=== PATIENT | male | born 1980 | race Caucasian/White ===

== ENCOUNTER 2016-07-08 07:53 | Emergency (ER) | payer BC ==
--- NOTE | 2016-07-09 08:23 | ER ---
ADMIT: 07/08/2016 RM/LOC: ER [facility] MR#: [id number] [address] [place], [place] [address] LARRY MAYEN [address] [place] [address] Emergency Room Report SEX: M AGE: 36 : 1980 DATE: 07/08/2016 TIME: 0753. PRIMARY CARE: Family Practice. Please refer to my T-sheet for complete H and P. HISTORY OF PRESENT ILLNESS: Briefly, the patient is a 36-year-old who comes in with headache, kind of diffusely all over. It started Saturday. He had been out drinking pretty heavily. , he thought he was hung over. He was nauseous although persisted Saturday, it has not gone away. He has had an episode like this years ago with a headache that did not go away. But this seems to be persistent. No fevers, no chills. He rates it 8/10. Comes in for evaluation. PHYSICAL EXAMINATION: VITAL SIGNS: Blood pressure 134/97, pulse 65, respirations 18, temp 98, saturating 100%. GENERAL: No acute distress. HEENT: No meningismus, no nuchal rigidity. LUNGS: Clear. HEART: Regular. ABDOMEN: Soft. SKIN: No rash. NEURO: He is alert, oriented, and nonfocal. EMERGENCY DEPARTMENT COURSE: I gave him a liter normal saline bolus, Reglan 10 IV, Decadron 10 IV, 2 mg of morphine. We will titrate morphine. Need to write for release. CAT scan of his brain was normal. His pain was vastly improved. I had a long discussion with him. They are ready for discharge. ASSESSMENT: Acute headache treated in the emergency department as above. PLAN: Reglan 10 mg t.i.d. p.r.n., fluids return if worse. Use Tylenol. Follow up with Family Practice if not better this week. Beto He MD/ jessika JOB #: [id number] CC: Beto He MD, Attending Physician Rolly Pozo MD, Family Physician
[2016-07-14] MEDS ORDERED: FLEXERIL DPS5 MG PO (19:49)
== END 2016-07-08 10:35 | disposition home or self-care (01) ==
LOC: ER 07:53
DX: R51 Headache (principal); Z79.899 Other long term (current) drug therapy

== ENCOUNTER → 2016-07-10 | Outpatient (CLI) | payer BC ==
[~2016-07-10] MED LIST: FLEXERIL DPS5 MG PO
== END | disposition home or self-care (01) ==
LOC: RAD.S 12:27
DX: G43.009 Migraine without aura, not intractable, without status migrainosus (principal)

== ENCOUNTER 2016-07-11 14:35 | Observation (INO) | payer BC ==
[~2016-07-11] VITALS: Ht 180.3 cm; Wt 86.0 kg
[2016-07-14] MEDS ORDERED: FLEXERIL DPS5 MG PO (19:49)
--- NOTE | 2016-07-20 07:33 | CO ---
ADMIT: 07/11/2016 RM/LOC: 507 [facility] MR#: [id number] [address] [address] LARRY MAYEN [address] [place] [address] Consultation SEX: M AGE: 36 : 1980 DATE OF CONSULTATION: 07/11/2016 ATTENDING PHYSICIAN: Cassius Coulter CONSULTING PHYSICIAN: Dante Billings MD REASON FOR CONSULT: Spontaneous CSF leak with headache. HISTORY OF PRESENT ILLNESS: Mr. Mayen was golfing last Saturday. He was not wearing his cleats for the first dayron-off. He kind of slipped and twisted and felt some pain in his back. Now, he has pain in his back. He has pain right between his shoulder blades and into his right buttock. He has had horrible headaches when he has gotten up. When he lays flat, his head feels just fine. This has been going on and non-remitting since last Saturday, so about 5 days or so. He came in today after having a CT myelogram for evaluation. He had had an MRI and MRA of his brain yesterday. PAST MEDICAL HISTORY: None otherwise. SOCIAL HISTORY: He is a nonsmoker and nondrinker. He is a counselor at [employer]. FAMILY HISTORY: No history of neurosurgical disease. REVIEW OF SYSTEMS: Complete review of systems was obtained and pertinent positives dictated in the aforementioned portion of this note. PHYSICAL EXAMINATION: VITAL SIGNS: 134/97, 65 beats, 18 respirations, 98 degrees, 100% on room air. GENERAL: He is an otherwise healthy-appearing gentleman with an atraumatic head. HEENT: No scleral icterus. Clear oropharynx. LUNGS: Normal respiratory excursion. ABDOMEN: Nontender abdomen. EXTREMITIES: 2+ radial pulses. NEUROLOGICAL EXAMINATION: MENTAL STATUS: He is awake, alert, and oriented x4. He has no dysphonia, dysarthria, or aphasia. His affect is appropriate. His thought content is normal. CRANIAL NERVES: Cranial nerves II through XII were individually tested and found to be intact without deficit. MOTOR EXAM: Motor exam reveals 5/5 strength in bilateral upper and lower extremities with normal bulk, normal tone. DEEP TENDON REFLEXES: 2/4 in the upper and lower extremities with no pathological sign or spread. CEREBELLAR: No cerebellar signs. GAIT: Not tested as he is recumbent in bed and has a severe headache whenever he is up. ADMIT: 07/11/2016 RM/LOC: [address] [facility] MR#: [id number] [address] [address] [place] [address] Consultation SEX: M AGE: 36 : 1980 ASSESSMENT AND PLAN: Mr. 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 I agree with Dr. Bekc's interpretation. I think there is a pretty clear leak on the CT myelogram from today at the T12-L1 level in the anterolateral aspect near the nerve off-take toward the right. I think it is very likely this will possibly heal on its own or with epidural blood patch. I have talked to Dr. Uriostegui with Anesthesia. They are planning on doing that tomorrow morning. I counseled the patient and his to be recumbent as much as possible and to not perform any maneuvers that would create a Valsalva that would increase cerebrospinal fluid pressure and create more of a leak. The longer he is recumbent, the better. The headache may persist for a few weeks even after this heals shut. I will see him back, after he is discharged, early next week. If he still is having pain and headache and has not had alleviation of his symptoms, we would consider a transforaminal epidural fibrin glue deposition in IR. Ultimately, if that would be unsuccessful, we would have to surgically repair this. I think it is very likely we will be able to repair it with nonsurgical means though. At this point, I think he should have as much sugared caffeinated beverages as he wants for the headaches and maintain a recumbent position with head and buttocks aligned as much as possible to try to limit any further excursion of CSF. I see no sign of spinal cord prolapse, which has been noted in the literature. I personally have seen a case of that. There is no sign of that at this point. Myelopathic signs would be a higher surgical acuity and consideration for operation at a sooner time period. We will plan to follow up with him while he is here in the hospital. I will plan to see him back next Saturday in clinic. Dante Billings MD/ jessika JOB #: [id number] CC: Cassius Coulter, Attending Physician Cassius Coulter, Family Physician
--- NOTE | 2016-07-21 18:06 | ER ---
ADMIT: 07/11/2016 RM/LOC: 507 [facility] MR#: [id number] [address] [place], [place] [address] ALRRY MAYEN [address] [place] [address] Emergency Room Report SEX: M AGE: 36 : 1980 DATE: 07/11/2016 ADDENDUM: CHIEF COMPLAINT: Headache. HISTORY OF PRESENT ILLNESS: This is a 36-year-old male, who was playing golf on this . He woke up Saturday morning with headache as soon as he sat up. It has been going on throughout the weekend. He had a CT done of his head on Saturday. He did see Dr. Cassius Coulter on Saturday. They did MRI which was negative for any acute findings, so Dr. Jairo Coulter today did an MRI of his T-spine and L-spine. He spoke with Dr. Kirby. He suggested that it could be spontaneous spinal headache, so sent him to the ER to be further evaluated. I did speak with both Dr. Jairo Coulter and Dr. Abdalla and Dr. Shi regarding this patient. We are trying to get a CT myelogram. He will be admitted for CT myelogram and pain control. CLINICAL IMPRESSION: Spontaneous spinal headache. CROW Turner / Beto He MD / modl JOB #: [id number] CC: Cassius Coulter MD, Attending Physician Cassius Coulter MD, Family Physician
--- NOTE | 2016-07-23 09:03 | OR ---
ADMIT: 07/11/2016 RM/LOC: 507 [facility] MR#: [id number] [address] [address] LARRY MAYEN [address] [place] [address] Operative/Delivery Room Report SEX: M AGE: 36 : 1980 SURGERY DATE: 07/12/2016 SURGEON: Dante Tillman MD PROCEDURE: Epidural blood patch. PREOPERATIVE DIAGNOSIS: Spinal headache secondary to spontaneous cerebrospinal fluid leak. POSTOPERATIVE DIAGNOSIS: Spinal headache secondary to spontaneous cerebrospinal fluid leak. INDICATION FOR PROCEDURE: The patient is a 36-year-old male who presented initially to his primary care provider and subsequently the emergency room complaining of a headache. This headache was positional in nature and in that it was very severe when he was sitting or standing up and was nearly completely relieved by lying flat. The patient feels like he has had these headaches for just under a week after he had injury to his back. He has had MRI of his brain as well as CT myelogram and the myelogram shows evidence of a CSF leak near the T12 nerve root. The patient denies any visual changes, fever, chills, or severe back pain at this. He denies any history of coagulopathies or being on any kind of blood thinner. DESCRIPTION OF PROCEDURE: Informed consent was obtained from the patient after explaining in detail all risks and benefits including but not limited to risk of inadvertent dural puncture, failure of the blood patch to relieve the headache, bleeding, infection, back pain, and sciatica, nerve damage. The patient agrees to proceed with the procedure. The patient was placed in the sitting position. Sterile prep and drape were applied to the low back area. Lidocaine 1% was infiltrated into the skin and subcutaneous tissues over approximately at L3-L4 interspace. This was noted to be approximately 1 interspace higher than the puncture for the myelogram. An 18-gauge Tuohy needle was used with loss of resistance technique the located the epidural space. The epidural space was encountered at approximately 6 cm. Sterilely, ADMIT: 07/11/2016 RM/LOC: 507 [facility] MR#: [id number] [address] [address] LARRY MAYEN [address] [place] [address] Operative/Delivery Room Report SEX: M AGE: 36 : 1980 clinical lab clerk lita blood from the patient's right AC area and passed the syringe to sd maintaining sterility. Slowly, 20 mL of the patient's blood was then injected to the epidural space. The needle was flushed and was withdrawn and a Band-Aid was placed over the site. The patient was returned to supine position and appeared to tolerate the procedure well. The patient will be discharged with followup as already planned with his primary care provider as well as Neurosurgery. The patient was instructed to return to the emergency room if he has any neurological deficits including any loss of bowel or bladder control, numbness or weakness of his lower extremities or severe back pain. It was also explained to the patient that 1 epidural blood patch may not be enough to relieve his headache and subsequent patch may be attempted on recommendation from his primary care provider or neurosurgeon. Dante Tillman MD/ jessika JOB #: [id number] CC: Cassius Coulter MD, Attending Physician Cassius Coulter MD, Family Physician
--- NOTE | 2016-07-26 08:09 | HP ---
ADMIT: 07/11/2016 RM/LOC: 507 [facility] MR#: [id number] [address] [address] LARRY MAYEN [address] [place] [address] History and Physical SEX: M AGE: 36 : 1980 DATE OF SERVICE: CHIEF COMPLAINT: Headache. HISTORY OF PRESENT ILLNESS: Larry is a 36-year-old, , white male, followed by Dr. Cassius Coulter in [facility]. He was seen today in the clinic for followup of a headache. He had complained of a severe headache that is progressively worse over the last couple of days and ultimately had an MRI and MRI of the brain obtained with followup today. The MRI and MRA of the brain were read as normal. He states the headache has progressively worsened. He states when he stands up, the pain is so excruciating, it feels like his head is going to blow up. He states when he lays down, it essentially goes away. He denies any fevers, chills, runny nose, cough, or other infectious symptoms. He states when he lays down, he essentially feels normal. PAST MEDICAL HISTORY: Operations none. Illnesses none. MEDICATIONS: Include recent Augmentin for sinuses. ALLERGIES: NONE KNOWN. SOCIAL HISTORY: Is that of a 36-year-old, white male. He has two children. 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 He does not smoke, and he drinks socially. FAMILY HISTORY: Noncontributory. REVIEW OF SYSTEMS: Remarkable for his headache only when he stands up. The remainder of review of systems is negative. PHYSICAL EXAMINATION: VITAL SIGNS: Stable. He is currently afebrile with temperature 99.2, blood pressure 129/77 with a pulse of 65, respiratory rate 16. GENERAL: Exam shows him to be alert. Pupils are reactive. Extraocular muscles intact. TMs normal. Throat normal. Neck normal. HEART: Regular without murmur. LUNGS: Clear. ABDOMEN: Soft, nontender, benign. GENITOURINARY: Deferred. RECTAL: Deferred. EXTREMITIES: Normal. He has no clubbing, cyanosis, or edema. NEUROLOGIC: Reveals grossly normal to light touch, strength, DTRs. Cerebellar function when lying horizontal. When he stands up, the pain is so excruciating, he immediately lays down. ASSESSMENT: Headache, likely spinal headache in origin due to spontaneous ADMIT: 07/11/2016 RM/LOC: 507 [facility] MR#: [id number] [address] [address] [place] [address] History and Physical SEX: M AGE: 36 : 1980 spinal leak. PLAN: MRI and MRA of the brain had been read as normal. MRI of the thoracic and lumbar spine were read as normal. Case was reviewed with Dr. Kirby in Neurology, Dr. Shi in Interventional Radiology, and local anesthesia. The plan is for the CT myelogram which was done in the ER to be read and then anticipate a blood patch to be placed. Anesthesia has been informed and discussion regarding blood patch placement were given. Likely, we will place the blood patch in lumbar area if no origin for the spinal leak is noted. In the meantime, he is admitted for IV fluid rehydration. We will proceed with further evaluation and management based on his course during the hospitalization. Jairo Coulter MD/ jessika JOB #: [id number] CC: Cassius Coulter, Attending Physician Cassius Coulter, Family Physician
== END 2016-07-12 14:18 | disposition home or self-care (01) ==
LOC: ER 14:35 → 5MS 19:00
PROVIDERS: ADMIT Family Medicine
PROC: 3E0S3GC Introduction of Other Therapeutic Substance into Epidural Space, Percutaneous Approach (ICD-10-PCS; principal; 2016-07-12)
DX: G96.0 Cerebrospinal fluid leak (principal); R51 Headache; Z79.899 Other long term (current) drug therapy

== ENCOUNTER 2016-07-18 21:09 | Emergency (ER) | payer BC ==
--- NOTE | 2016-07-19 01:26 | ER ---
ADMIT: 07/18/2016 RM/LOC: ER [facility] MR#: [id number] [id number] [place], [place] [address] LARRY MAYEN [address] [place] [address] Emergency Room Report SEX: M AGE: 36 : 1980 DATE: 07/18/2016 TIME: 2109 hours. PRIMARY CARE: Dr. Cassius Coulter. Please refer to my T-sheet for complete H and P. Briefly, the patient is a 36-year-old, who comes in with headache, pain to his back. He has kind of a complex history, started having headaches for the last couple of weeks. Seen in the ER, he had further workup. He ended up getting a CT myelogram that showed a CSF leak. They did a blood patch on , seemed to be improved, was actually seen by Dr. Billings yesterday and started getting worse headaches again today. He is nauseous and it hurts down in his neck and his low back. No fevers or chills. PHYSICAL EXAMINATION: VITAL SIGNS: His blood pressure is 130/87, pulse 60, respirations 14, temperature 98.6, saturating 100%. GENERAL: In no acute distress. HEENT: His neck feels tight, but no real meningismus. LUNGS: Clear. HEART: Regular. ABDOMEN: Soft. BACK: He has tenderness in the lower lumbar region. No erythema. EMERGENCY DEPARTMENT COURSE: His CBC was normal except white count 13.6 and platelets 127. Chemistries normal except glucose 120. Lactate was 2.1. CRP was 1.69. He was given Reglan 10 mg IV, Toradol 30 IV, and 1 L of normal saline bolus. Morphine was titrated. His pain was vastly improved. I talked to Dr. Dante Billings. They will follow him up tomorrow and Saturday this week. He feels better and good enough to go home. ASSESSMENT: 1. Headache. 2. Status post blood patch. My concern is that his CSF is leaking again versus a little bit of chemical meningitis as discussed with Dr. Billings. PLAN: Fluids. Return if worse. I gave him a script for Reglan. Use Tylenol or Motrin or his tramadol at home and follow up with Dr. Billings. Beto He MD/ jessika JOB #: [id number] CC: Beto He MD, Attending Physician ADMIT: 07/18/2016 RM/LOC: [facility] MR#: [id number] [address] [place] [id number] [place] [address] Emergency Room Report SEX: M AGE: 36 : 1980 Dante Billings MD
== END 2016-07-18 23:20 | disposition home or self-care (01) ==
LOC: ER 21:09
DX: R51 Headache (principal); M54.5 Low back pain; F17.200 Nicotine dependence, unspecified, uncomplicated

== ENCOUNTER → 2016-07-26 | Outpatient (CLI) | payer BC ==
--- NOTE | 2016-08-01 07:15 | OR ---
ADMIT: 07/26/2016 RM/LOC: [facility] MR#: [id number] [address] [place], [place] [address] LARRY MAYEN [address] [place] [address] Operative/Delivery Room Report SEX: M AGE: 36 : 1980 Corrected: 07/27/201601njv SURGERY DATE: 07/26/2016 SURGEON: Dante Billings MD PREPROCEDURE DIAGNOSIS: Cerebrospinal fluid leak with intracranial hypotension. POSTPROCEDURAL DIAGNOSIS: Cerebrospinal fluid leak with intracranial hypotension. PROCEDURE: Epidural injection of fibrin glue sealant. COSURGEON: Marco A Kiran MD, please see Dr. Jay's dictation for his portion of the procedure. DESCRIPTION OF PROCEDURE: After gaining informed consent, the patient was taken to the interventional suite, a time-out was utilized to ascertain the correct site and side of surgery as well as other pertinent patient historical information. Counts were obtained at the beginning and the end of the case with no change betwixt the two. Antibiotics given within 1-hour of incision. Dr. Kiran accessed the anterior space through transforaminal approach. There was no CSF encountered from the needle. After using a separate needle for volumetric evaluation, I injected slightly less than 1 mL of Tisseel into the anterior epidural space and at the thoracolumbar juncture. There was no sign of complication. The patient was moving his feet immediately afterwards. The needle was withdrawn and he was taken to the short-stay surgery for discharge. Dante Billings MD/ jessika JOB #: [id number] CC: Dante Billings, Attending Physician Cassius Coulter, [facility] Physician Corrected: 07/27/[id number]
== END | disposition home or self-care (01) ==
LOC: RAD.S 07:23
PROC: 3E0R3GC Introduction of Other Therapeutic Substance into Spinal Canal, Percutaneous Approach (ICD-10-PCS; principal; 2016-07-26)
DX: G96.11 Dural tear (principal); R51 Headache; M54.14 Radiculopathy, thoracic region; T14.90 Injury, unspecified